=== PATIENT | female | born 1995 | race Caucasian/White ===

== ENCOUNTER 2018-05-18 22:30 | Emergency (ER) | payer MEDICAID ==
[~2018-05-18] VITALS: Ht 170.2 cm; Wt 76.4 kg
[2018-05-18 22:47] VITALS: Ht 170.2 cm; Wt 76.4 kg
[2018-05-18] MEDS ORDERED: HYDROCODONE-APA1 TAB PO (23:46)
[2018-05-18] MEDS ORDERED: NAPROSYN500 MG PO (23:46)
[2018-05-19 00:01] VITALS: BP 132/79
== END 2018-05-19 00:01 | disposition home or self-care (01) ==
LOC: D.ER 22:30
DX: S83.92XA Sprain of unspecified site of left knee, initial encounter (principal); X58.XXXA Exposure to other specified factors, initial encounter; Y93.89 Activity, other specified; Y92.89 Other specified places as the place of occurrence of the external cause